=== PATIENT | female | born 2000 | race Caucasian/White ===

== ENCOUNTER 2022-06-18 15:33 | Emergency (ER) | payer OTHER, SELFPAY ==
[2022-06-18 15:34] VITALS: BP 132/83; PULSE 79; RESP 18; TEMP 36.6; O2SAT 100; BMI 19.3
--- NOTE | 2022-06-18 15:50 | RAD_ITS ---
EXAM: XR RIGHT FINGERS, 2 OR MORE VIEWS CLINICAL INDICATION: Trauma TECHNIQUE: Frontal, lateral and oblique views of the fingers of the right hand. This report was created using [employer] report [employer] technology. COMPARISON: None. FINDINGS: BONES/JOINTS: Unremarkable. No acute fracture. No subluxation. Normal alignment. Preservation of the joint space. No sclerotic or destructive changes observed. SOFT TISSUES: Soft tissue swelling around the fourth digit. Fracture through the tuft of the fourth digit. Open fracture is not excluded. No radiopaque foreign body. RAD/Finger(s) Min 2 Views IMPRESSION: Soft tissue swelling around the fourth digit. Fracture through the tuft of the fourth digit. Open fracture is not excluded. Electronically Signed: Tera Shukla MD at 16:08 EST Reading Location ID and State: [facility] / [place] , Service support ,
[2022-06-18] MEDS: Bupivacaine Mpf 0.5% 30 ML VIAL INFILT (15:54)
[2022-06-18] MEDS: Diphth,Pertuss(Acell),Tet Vac 0.5 ML Vial IM (15:55)
[2022-06-18] MEDS: Lidocaine 1% (20 ml mdv) 20 ML Vial INFILT (15:55)
--- NOTE | 2022-06-18 16:41 | EDS_ITS ---
HPI History of Present Illness Chief Complaint: Laceration Informant: patient Narrative Narrative: Patient got her distal right dominant hand ring finger smashed and cut. Last tetanus is uncertain. Minimal bleeding it is well controlled. No numbness. Range of motion is intact. No other injury. It is better if she covers it. It is worse if she gets it pressed or touched. She is not diabetic. No anticoagulation. PFSH PFSH Home Medications cephalexin 500 mg capsule 500 mg PO Q6 #28 caps 06/18/22 [Rx Last Taken Unknown] Allergy/AdvReac Type Severity Reaction Status Date / Time No Known Allergies Allergy Verified 06/18/22 15:35 Social History Smoking Status: Never smoker ROS ROS ED Constitutional Constitutional ED: Denies fever(s) Gastrointestinal Gastrointestinal: Denies nausea or vomiting Musculoskeletal Musculoskeletal: Reports other Details: Injury to dominant hand right distal index finger as in history of present illness. Integumentary Reports other Details: Laceration to distal finger. Neurologic Neurologic: Denies paresthesias Endocrine Endocrinology: Denies polydipsia or polyuria Hematologic/Lymphatic Hematologic/Lymphatic: Denies easy bleeding or easy bruising EXAM Physical Exam Const Vital Signs: 06/18/22 15:34 Temperature 97.9 F Temperature Source Temporal Pulse Rate 79 Respiratory Rate 18 Blood Pressure 132/83 H Blood Pressure Mean 99 Pulse Ox 100 Oxygen Delivery Method Room Air Positive well nourished and well developed General Appearance ED: well developed and NAD HEENT atraumatic Resp normal respiratory effort Extremity Extremity Narrative: Patient has contused and lacerated tissue overlying the right distal ring finger. There is no active bleeding but there is some dried blood around the tip. There is certainly a laceration but the details of this are hard to see with the dried blood. This will be examined more closely after anesthesia for her comfort. Both flexor and extensor tendons are intact. Both superficial and deep flexors are intact. Neuro no focal motor deficits and no sensory deficits noted Sensorium / Orientation: alert Psych mental status grossly normal Skin General Skin Exam: Negative for petechiae MDM MDM MDM Narrative Medical decision making narrative: Procedure: Suture of laceration and wound cleansing Discussed risk benefits. We did a digital block with a total of about 2 cc of a 50% mixture of 1% lidocaine and 0.5% bupivacaine. Patient got excellent anesthesia in the lateral aspect but medially the anesthesia just went part way down. We have added about another 1 cc to that area and then waited longer. The area was then completely anesthetic. We scrubbed the tip. There is a lacer ation transversely across the nail but the nail itself both proximal and distal was not loose so it was kept in place. This was copiously irrigated and scrubbed all around the area. There was actually a moderate amount of skin that it was peeled off. This was trimmed to avoid leaving totally devitalized tissue. This was all superficial epidermal tissue loss. There is one area on the tuft that did go into the deeper tissues. This was sutured with just 1 suture to bring this back. This was all copiously scrubbed and irrigated prior to this. I talked to the patient about signs of infection and reasons to return. She does have technically an open fracture. We will get antibiotics initiated. Radiography Diagnostic Testing: Clinical Impression(s) from Imaging Studies Finger X-Ray 06/18/22 15:50 IMPRESSION: Soft tissue swelling around the fourth digit. Fracture through the tuft of the fourth digit. Open fracture is not excluded. Electronically Signed: Tera Shukla MD at 16:08 EST , Three-view x-ray of her right ring finger looked at by me and read by radiology does show a fracture transversely across the distal tuft. Discharge Plan Triage Chief Complaint: Laceration Other Complaint: Upper Extremity Injury ED Provider: Selvin Reyse Dx/Rx/DC Orders Clinical Impression: Laceration of right index finger, Open fracture of tuft of distal phalanx of finger Instructions: ED Fracture, Finger, Open, ED Laceration: All Closures Prescriptions: New cephalexin [cephalexin] 500 mg capsule 500 mg PO Q6 Qty: 28 0RF Primary Care Provider: BETH ACOSTA Referrals: BETH ACOSTA [Other] - 10 Day for suture removal Disposition Disposition: Home, Self Care
[2022-06-18] MEDS: Cephalexin 250 MG Capsule 500 MG PO (17:30)
== END 2022-06-18 17:32 | disposition home or self-care (01) ==
PROVIDERS: Emergency Provider Emergency Medicine; Visit Provider Emergency Medicine
DX: S62.634B Displaced fracture of distal phalanx of right ring finger, initial encounter for open fracture (principal); W23.0XXA Caught, crushed, jammed, or pinched between moving objects, initial encounter; Z23 Encounter for immunization
CPT/HCPCS: 12001; 73140; 90715; 99283

== ENCOUNTER → 2023-03-22 | Outpatient (CLI) | payer OTHER, SELFPAY ==
[2023-03-22 17:51] LABS: Absolute Lymphocyte Count 2.61 X10^3/uL (0.83-4.51); Absolute Neutrophil Count 4.8 X10^3/uL (2.0-7.7); Basophil# 0.04 X10^3/uL; Basophil% 0.5 % (0-1); Eosinophil# 0.17 X10^3/uL; Hematocrit 40.6 % (37-47); Hemoglobin 13.2 g/dL (12.0-15.0); Lymphocyte # 2.61 X10^3/ul (0.83-4.51); Lymphocyte % 31.3 % (19-41); Mean Corp Hgb Conc 32.5 g/dL (32-36); Mean Corpuscular Hgb 28.4 pg (27.0-32.0); Mean Corpuscular Volume 87.5 fL (81-99); Mean Platelet Vol. 10.5 fl (6.2-12.0); Monocyte# 0.67 X10^3/uL; NRBC Flagged by Analyzer 0 % (0-5); Neutrophil # 4.84 X10^3/uL (2.7-7.7); Platelet Count 258 K/mm3 (150-450); RBC Distribution Width CV 12.1 % (11.6-14.6); RBC Distribution Width SD 39.3 fl (35.1-43.9); Red Blood Count 4.64 M/mm3 (4.2-5.4); White Blood Count 8.4 K/mm3 (4.4-11.0)
[2023-03-22 18:24] LABS: Vitamin B12 433 pg/mL (211-911); Vitamin D,25 Hydroxy 44.3 ng/mL
[2023-03-22 18:30] LABS: ALB/GLOB Ratio 1.1 RATIO (0.9-2.4); AST(SGOT) 15 U/L (15-37); Alanine Aminotransfer ALT/SGPT 23 U/L (13-56); Albumin, Serum 3.9 g/dL (3.2-5.0); Alkaline Phosphatase 75 U/L (45-117); Anion Gap 3 (5-15); BUN 15 mg/dL (7-18); BUN/Creat Ratio 21.2 RATIO (10-20); Calcium,Total 8.8 mg/dL (8.5-10.1); Chloride 106 mmol/L (98-107); Creatinine, Serum 0.71 mg/dL (0.55-1.02); EST Glomerular Filtration Rate 107 mL/min (>60); Est Glom Filt Rate - Afr Amer 130 mL/min (>60); Ferritin 53 ng/mL (8-252); Globulin 3.4 g/dL (2.2-4.2); Glucose 60 mg/dL (74-106); Magnesium 2.3 mg/dL (1.6-2.6); Potassium 3.4 mmol/L (3.5-5.1); Protein, Total 7.3 g/dL (6.4-8.2); Sodium Level 139 mmol/L (136-145); Thyroid Stim Hormone (TSH) 1.41 uIU/mL (0.358-3.74)
== END | disposition home or self-care (01) ==
LOC: MTLAB 14:34
PROVIDERS: PCP Family Medicine; Visit Provider Family Medicine
DX: R53.83 Other fatigue (principal)
CPT/HCPCS: 36415; 80053; 82306; 82607; 82728; 83735; 84443; 85025

== ENCOUNTER → 2025-01-06 | Outpatient (CLI) | payer OTHER, SELFPAY ==
--- OUTSIDE RECORDS SUMMARY | 2025-01-06 23:04 | XMS RPT_ITS | CCD ---
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 Mona Londono Attending Provider [phone] Sunshine Loja Primary Care Unavailable Mela Hobbs NP Attending Unavailable Sunshine Loja Attending Unavailable Sunshine Loja Primary Care Unavailable Dr. Mona Londono DO Attending Provider Medications Current Medications Medication Drug Class(es) Dates Sig (Normalized) Sig (Original) [place] (Nk) (2 sources) Start: 12-21-2022 [place] (Nk) A ctive December 21, 2022 12:00am Completed/Discontinued Medications Medication Drug Class(es) Dates Sig (Normalized) Sig (Original) cephalexin 500 mg oral capsule (3 sources) Cephalosporin Antibacterial Start: 06-18-2022 End: 12-21-2022 take 1 capsule by mouth every six hours Cephalexin 500 mg capsule Discontinued 500 mg PO EVERY 6 HOURS 28 0 June 18, 2022 1:00am December 21, 2022 9:12am Problems Active Problems Problem Classification Problem Date Documented Da te Episodic/Chronic Contraceptive and procreative management (1 source) Patient encounter status; Translations: [Encounter for other general counseling and advice on procreation] 01-06-2025 Episodic Fracture of upper limb (3 sources) Open fracture finger distal phalanx, tuft; Translations: [Displaced fracture of distal phalanx of unspecified finger, initial encounter for open fracture] 06-26-2022 Episodic Mood disorders (1 source) Mood swings; Translations: [Emotional lability] 12-27-2023 Episodic Comment on above: cyclic. Declines Rx. Reviewed diet, exercise, multivitamin Open wounds of extremities (3 sources) Laceration of right index finger; Translations: [Laceration without foreign body of right index finger without damage to nail, initial encounter] 06-26-2022 Episodic Past or Other Problems Problem Classification Problem Date Documented Da te Episodic/Chronic Malaise and fatigue (1 source) Other fatigue; Translations: [Other fatigue] Onset: 03-28-2023 Episodic Results Test Name Value Interpretation Reference Range Facility E Business Specialist Office Visit Reporton 12-27-2023 E Business Specialist Office Visit Report [facility] [address] [place] [address] OFFICE VISIT Date of Service: 12/27/23 MR#: [id number] Acct: [id number] Name: RANDALL MOROCHO Rep #: [id number] : 2000 Provider: MEHUL white Age/Sex: 23/F [place] 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 Accompanied by: Self Is patient in pain?: No Feel stressed/tense/nervo us/anxious/difficult y sleeping: only a little Allergies No Known Allergies Allergy (Verified 12/27/23 11:24) Medications ???Medication ???Instructions ???Recorded ???Confirmed ???Type NK 12/21/22 12/27/23 History PFSH Medical History Anemia Surgical History S/P wisdom tooth extraction Family History Grandmother Breast cancer Social History Smoking Status: Never smoker alcohol intake: never substance use type: does not use caffeine: No what type of physical activity do you participate in: walking frequency: 3-4 times per week seatbelt use: always do you feel safe at home: Yes additional social history: Single HPI Encounter for routine gynecological examination Details: RANDALL MOROCHO is a 23 year old who presents for annual exam. No intercourse. Has had oral contact. Same partner. No contraception X 2 years/was on pills but is electing to use abstinence now. Noting more emotional especially prior to menses. Does not want to take contraception or medications if possible. Last PAP: 2021 History of abnormal PAP: no Last mammogram: NA Other preventative health care screenings: [facility] Female Reproductive History Last Menstrual Period: 12/06/23 Cycle Length: 21-35 Questions: metorrhagia: No and sexually active: No ROS Const Constitutional: Denies fatigue, weight gain or weight loss Cardio Card: Denies chest pain Resp Resp: Denies cough or dyspnea on exertion GI GI: Denies abdominal pain, bloating, change in stool character, constipation or vomiting : Reports as per HPI; Denies difficulty voiding, pelvic pain, urinary frequency, urinary incontinence, urinary urgency, vaginal discharge or vaginal pruritus Psych Psych: Reports as per HPI Exam Const General: cooperative, healthy appearing, no acute distress and well developed Orientation: alert, oriented to person and oriented to place HENMS Head: normal to inspection Neck Neck: normal visual inspection Thyroid: thyroid normal Lymphatic: no lymphadenopathy noted Chest Breast inspection: normal inspection of the breasts and normal inspection of the axillae Breast palpation: normal palpation of the breasts, normal palpation of the axillae and no axillary lymphadenopathy Resp Effort Inspection: normal respiratory effort GI Palpation: soft, no masses and nontender Rectal Exam: deferred External Female Exam: normal external appearance and normal appearance of the urethra Urethra: normal appearance of the urethra and normal palpation Speculum Exam - Vagina: normal appearance of the vagina and normal vaginal discharge Speculum Exam - Cervix: normal appearance of the cervix Bimanual Exam- Vagina Uterus: normal bimanual exam, uterine size normal, uterine shape normal and non-tender Bimanual Exam- Adnexa, other: normal adnexae, no masses, normal and non-tender Pelvic Support: normal Neuro General: patient alert and patient oriented x3 Psych Affect: normal affect Coding Level of Care Code Off vis,est,prev 18-39yrs Diagnoses Encounter for gynecological examination with abnormal finding Z01.411 Gynecological examination findings: abnormal findings PRESENT Emotional lability R45.86 Assessment and Plan Assessment and Plan (1) Encounter for routine gynecological examination: Qualifiers: Gynecological examination findings: abnormal findings PRESENT Qualified Code(s): Z01.411 - Encounter for gynecological examination (general) (routine) with abnormal findings (2) Emotional lability: Status: Acute Comment: cyclic. Declines Rx. Reviewed diet, exercise, multivitamin Plan Completed breast and pelvic exam Reviewed diet and exercise Pap 2021 Discussed benefit of contraception, SSRI, low sugar/carb diet, exercise. She prefers to avoid medications breast self exam encouraged monthly Contraception abstinence RTO 1 year, prn with problems [facility]ara [facility]rakash[facility] 12/27/23 1152 (more content not included)... Normal [facility] Outside Recordson 12-13-2023 Outside Records [id number] #[id number] [facility] Absolute lymphocyte countOrd ered By: Sunshine Grubbsnger on 03-22-2023 Lymphocytes Auto (Unsp spec) [#/Vol] 2.61 10*3/uL 0.83-4.51 [facility] Basophil percentageOrdered B y: Sunshine Loja on 03-22-2023 Basophils/100 WBC (Bld) 0.5 % 0-1 [facility] Bilirubin [Mass/Vol] 0.50 mg/dL 0.20-1.00 [facility] Comment on above: For patients on eltr ombopag therapy, use of [place] TBIL is not recommended. Chloride [Moles/Vol] 106 mmol/L 98-107 [facility] Eosinophils/100 WBC (Bld) 2.0 % 0-5 [facility] Glucose [Mass/Vol] 60 mg/dL 74-106 [facility] Neutrophils (Bld) [#/Vol] 4.8 10*3/uL 2.0-7.7 [facility] Neutrophils/100 WBC (Bld) 58.0 % 47-70 [facility] Potassium [Moles/Vol] 3.4 mmol/L 3.5-5.1 [facility] Protein [Mass/Vol] 7.3 g/dL 6.4-8.2 [facility] Sodium [Moles/Vol] 139 mmol/L 136-145 [facility] WBC (Bld) [#/Vol] 8.4 10*3/uL 4.4-11.0 [facility] Blood erythrocytes count (nu mber/volume)Ordered By: Sunshine Loja on 03-22-2023 RBC (Bld) [#/Vol] 4.64 10*6/uL 4.2-5.4 [facility] Blood hemoglobin measurement (mass/volume)Ordered By: Sunshine Loja on 03-22-2023 Hemoglobin (Bld) [Mass/Vol] 13.2 g/dL 12.0-15.0 [facility] Blood lymphocytes/100 leukoc ytesOrdered By: Sunshine Loja on 03-22-2023 Lymphocytes/100 WBC (Bld) 31.3 % 19-41 [facility] Blood monocytes/100 leukocyt esOrdered By: Sunshine Loja on 03-22-2023 Monocytes/100 WBC (Bld) 8.0 % 0-10 [facility] Blood platelet mean volumeOr dered By: Sunshine Loja on 03-22-2023 Platelet mean volume (Bld) [Entitic vol] 10.5 fL 6.2-12.0 [facility] CBC W/Diff, Automatedon 03-09 Absolute Lymph 2.61 X10 3/uL Normal 0.83-4.51 [facility] Comment on above: Order Comment: Order Date: 03/22/23 Order Info: 0184-1 - CBCD Performed By: #### L 501.9520, L503.6550, L500.4050, L100.0100, L501.5200, L506.1000, L503.0105 #### [facility] [address] [facility]. [place], [place], [id number] Absolute Neut 4.8 X10 3/uL Normal 2.0-7.7 [facility] Comment on above: Order Comment: Order Date: 03/22/23 Order Info: 0184-1 - CBCD Performed By: #### L 501.9520, L503.6550, L500.4050, L100.0100, L501.5200, L506.1000, L503.0105 #### [facility] [address] [place], [address] Basophils/100 WBC (Bld) 0.5 % Normal 0-1 [facility] Comment on above: Order Comment: Order Date: 03/22/23 Order Info: 0184-1 - CBCD Performed By: #### L 501.9520, L503.6550, L500.4050, L100.0100, L501.5200, L506.1000, L503.0105 #### [facility] [address] [place], [address] Eosinophils/100 WBC (Bld) 2.0 % Normal 0-5 [facility] Comment on above: Order Comment: Order Date: 03/22/23 Order Info: 0184- - CBCD Performed By: #### L 501.9520, L503.6550, L500.4050, L100.0100, L501.5200, L506.1000, L503.0105 #### [facility] [address] [place], [address] Erythrocyte distribution width (RBC) [Ratio] 12.1 % Normal 11.6-14.6 [facility] Comment on above: Order Comment: Order Date: 03/22/23 Order Info: 0184- - CBCD Performed By: #### L 501.9520, L503.6550, L500.4050, L100.0100, L501.5200, L506.1000, L503.0105 #### [facility] [address] [place], [address] Hematocrit (Bld) [Volume fraction] 40.6 % Normal 37-47 [facility] Comment on above: Order Comment: Order Date: 03/22/23 Order Info: 0184-1 - CBCD Performed By: #### L 501.9520, L503.6550, L500.4050, L100.0100, L501.5200, L506.1000, L503.0105 #### [facility] [address] [place], [address] Hemoglobin (Bld) [Mass/Vol] 13.2 g/dL Normal 12.0-15.0 [facility] Comment on above: Order Comment: Order Date: 03/22/23 Order Info: 0184-1 - CBCD Performed By: #### L 501.9520, L503.6550, L500.4050, L100.0100, L501.5200, L506.1000, L503.0105 #### [facility] [address] [place], [address] IG% 0.200 Normal 0.0-0.9 [facility] Comment on above: Order Comment: Order Date: 03/22/23 Order Info: [id number] - CBCD Result Comment: IG% - Immature Granulocytes (promyelocytes, myelocytes and metamyelocytes) > 1% indicates that a LEFT SHIFT is Present. Performed By: #### L 501.9520, L503.6550, L500.4050, L100.0100, L501.5200, L506.1000, L503.0105 #### [facility] [address] [place], [address] Lymphocytes/100 WBC (Bld) 31.3 % Normal 19-41 [facility] Comment on above: Order Comment: Order Date: 03/22/23 Order Info: 0184- - CBCD Performed By: #### L 501.9520, L503.6550, L500.4050, L100.0100, L501.5200, L506.1000, L503.0105 #### [facility] [address] [place], [address] MCH (RBC) [Entitic mass] 28.4 pg Normal 27.0-32.0 [facility] Comment on above: Order Comment: Order Date: 03/22/23 Order Info: 0184-1 - CBCD Performed By: #### L 501.9520, L503.6550, L500.4050, L100.0100, L501.5200, L506.1000, L503.0105 #### [facility] [address] [place], [address] MCHC (RBC) [Mass/Vol] 32.5 g/dL Normal 32-36 [facility] Comment on above: Order Comment: Order Date: 03/22/23 Order Info: 0184-1 - CBCD Performed By: #### L 501.9520, L503.6550, L500.4050, L100.0100, L501.5200, L506.1000, L503.0105 #### [facility] [address] [place], [address] MCV (RBC) [Entitic vol] 87.5 fL Normal 81-99 [facility] Comment on above: Order Comment: Order Date: 03/22/23 Order Info: 0184-1 - CBCD Performed By: #### L 501.9520, L503.6550, L500.4050, L100.0100, L501.5200, L506.1000, L503.0105 #### [facility] [address] [place], [address] Monocytes/100 WBC (Bld) 8.0 % Normal 0-10 [facility] Comment on above: Order Comment: Order Date: 03/22/23 Order Info: 0184-1 - CBCD Performed By: #### L 501.9520, L503.6550, L500.4050, L100.0100, L501.5200, L506.1000, L503.0105 #### [facility] [address] [place], [address] Neutrophils/100 WBC (Bld) 58.0 % Normal 47-70 [facility] Comment on above: Order Comment: Order Date: 03/22/23 Order Info: 0184-1 - CBCD Performed By: #### L 501.9520, L503.6550, L500.4050, L100.0100, L501.5200, L506.1000, L503.0105 #### [facility] [address] [place], [address] Nucleated RBC (Bld) [#/Vol] 0 10*3/uL Normal 0-5 [facility] Comment on above: Order Comment: Order Date: 03/22/23 Order Info: 0184-1 - CBCD Performed By: #### L 501.9520, L503.6550, L500.4050, L100.0100, L501.5200, L506.1000, L503.0105 #### [facility] [address] [place], [address] Platelet mean volume (Bld) [Entitic vol] 10.5 fL Normal 6.2-12.0 [facility] Comment on above: Order Comment: Order Date: 03/22/23 Order Info: 0184-1 - CBCD Performed By: #### L 501.9520, L503.6550, L500.4050, L100.0100, L501.5200, L506.1000, L503.0105 #### [facility] [address] [place], [address] Platelets (Bld) [#/Vol] 258 10*3/uL Normal 150-450 [facility] Comment on above: Order Comment: Order Date: 03/22/23 Order Info: 0184-1 - CBCD Performed By: #### L 501.9520, L503.6550, L500.4050, L100.0100, L501.5200, L506.1000, L503.0105 #### [facility] [address] [place], [address] RBC (Bld) [#/Vol] 4.64 10*6/uL Normal 4.2-5.4 [facility] Comment on above: Order Comment: Order Date: 03/22/23 Order Info: 0184-1 - CBCD Performed By: #### L 501.9520, L503.6550, L500.4050, L100.0100, L501.5200, L506.1000, L503.0105 #### [facility] [address] [place], [address] RDW SD 39.3 fl Normal 35.1-43.9 [facility] Comment on above: Order Comment: Order Date: 03/22/23 Order Info: 0184-1 - CBCD Performed By: #### L 501.9520, L503.6550, L500.4050, L100.0100, L501.5200, L506.1000, L503.0105 #### [facility] [address] [place], [address] WBC (Bld) [#/Vol] 8.4 10*3/uL Normal 4.4-11.0 [facility] Comment on above: Order Comment: Order Date: 03/22/23 Order Info: 0184-1 - CBCD Performed By: #### L 501.9520, L503.6550, L500.4050, L100.0100, L501.5200, L506.1000, L503.0105 #### [facility] [address], [address] Comprehensive Metabolic Prof [facility] 03-22-2023 Albumin [Mass/Vol] 3.9 g/dL Normal 3.2-5.0 [facility] Comment on above: Order Comment: Order Date: 03/22/23 Order Info: 0786-1 - CMP Order Info: [id number] - MG Order Info: 3016-3 - TSH Order Info: 2276-4 - JULES Performed By: #### L 501.9520, L503.6550, L500.4050, L100.0100, L501.5200, L506.1000, L503.0105 #### [facility] [address] [place], [address] Albumin/Globulin [Mass ratio] 1.1 {ratio} Normal 0.9-2.4 [facility] Comment on above: Order Comment: Order Date: 03/22/23 Order Info: 0786-1 - CMP Order Info: [id number] - MG Order Info: 6-3 - TSH Order Info: 2275-4 - JULES Performed By: #### L 501.9520, L503.6550, L500.4050, L100.0100, L501.5200, L506.1000, L503.0105 #### [facility] [address] [place], [address] ALK P 75 U/L Normal 45-117 [facility] Comment on above: Order Comment: Order Date: 03/22/23 Order Info: 86-1 - CMP Order Info: [id number] - MG Order Info: 3015-3 - TSH Order Info: 4 - JULES Performed By: #### L 501.9520, L503.6550, L500.4050, L100.0100, L501.5200, L506.1000, L503.0105 #### [facility] [address] [place], [address] ALT [Catalytic activity/Vol] 23 U/L Normal 13-56 [facility] Comment on above: Order Comment: Order Date: 03/22/23 Order Info: 0786-1 - CMP Order Info: 65332-5 - MG Order Info: 3015-3 - TSH Order Info: 2275-4 - JULES Performed By: #### L 501.9520, L503.6550, L500.4050, L100.0100, L501.5200, L506.1000, L503.0105 #### [facility] [address] [place], [address] AST [Catalytic activity/Vol] 15 U/L Normal 15-37 [facility] Comment on above: Order Comment: Order Date: 03/22/23 Order Info: 0786-1 - CMP Order Info: [id number] - MG Order Info: 3016-3 - TSH Order Info: 2275-4 - JULES Performed By: #### L 501.9520, L503.6550, L500.4050, L100.0100, L501.5200, L506.1000, L503.0105 #### [facility] [address] [place], [address] Bilirubin [Mass/Vol] 0.50 mg/dL Normal 0.20-1.00 [facility] Comment on above: Order Comment: Order Date: 03/22/23 Order Info: 0786-1 - CMP Order Info: [id number] - MG Order Info: 3015-3 - TSH Order Info: 4 - JULES Result Comment: For patients on eltrombopag therapy, use of [place] TBIL is not recommended. Performed By: #### L 501.9520, L503.6550, L500.4050, L100.0100, L501.5200, L506.1000, L503.0105 #### [facility] [address] [place], [address] BUN/CRE 21.2 RATIO High 10-20 [facility] Comment on above: Order Comment: Order Date: 03/22/23 Order Info: 0786-1 - CMP Order Info: 72024-2 - MG Order Info: 3015-3 - TSH Order Info: 2275-4 - JULES Performed By: #### L 501.9520, L503.6550, L500.4050, L100.0100, L501.5200, L506.1000, L503.0105 #### [facility] [address] [place], [address] CA,Total 8.8 mg/dL Normal 8.5-10.1 [facility] Comment on above: Order Comment: Order Date: 03/22/23 Order Info: 0786-1 - CMP Order Info: 60940-8 - MG Order Info: 3015-3 - TSH Order Info: 4 - JULES Performed By: #### L 501.9520, L503.6550, L500.4050, L100.0100, L501.5200, L506.1000, L503.0105 #### [facility] [address] [place], [address] Chloride [Moles/Vol] 106 mmol/L Normal 98-107 [facility] Comment on above: Order Comment: Order Date: 03/22/23 Order Info: 0786-1 - CMP Order Info: [id number] - MG Order Info: 3016-3 - TSH Order Info: 4 - JULES Performed By: #### L 501.9520, L503.6550, L500.4050, L100.0100, L501.5200, L506.1000, L503.0105 #### [facility] [address] [place], [address] CO2 [Moles/Vol] 30.0 mmol/L Normal 21.0-32.0 [facility] Comment on above: Order Comment: Order Date: 03/22/23 Order Info: 785-1 - CMP Order Info: [id number] - MG Order Info: 3 - TSH Order Info: 4 - JULES Performed By: #### L 501.9520, L503.6550, L500.4050, L100.0100, L501.5200, L506.1000, L503.0105 #### [facility] [address] [place], [address] Creatinine [Mass/Vol] 0.71 mg/dL Normal 0.55-1.02 [facility] Comment on above: Order Comment: Order Date: 03/22/23 Order Info: 0786-1 - CMP Order Info: 84896-8 - MG Order Info: 3015-3 - TSH Order Info: 4 - JULES Result Comment: The validity of the calculated GFR GFRAA in patients over 70 years has not been determined. Clinical correlation is essential. Performed By: #### L 501.9520, L503.6550, L500.4050, L100.0100, L501.5200, L506.1000, L503.0105 #### [facility] [address] [place], [place], [address] EST GFR - AA 130 mL/min Normal >60 [facility] Comment on above: Order Comment: Order Date: 03/22/23 Order Info: 0786-1 - CMP Order Info: [id number] - MG Order Info: 3015-3 - TSH Order Info: 2275-4 - JULES Result Comment: Afri can Pan[place]ian GFR Calc Performed By: #### L 501.9520, L503.6550, L500.4050, L100.0100, L501.5200, L506.1000, L503.0105 #### [facility] [address] [place], [place], [address] GAP 3 Low 5-15 [facility] Comment on above: Order Comment: Order Date: 03/22/23 Order Info: 0786-1 - CMP Order Info: [id number] - MG Order Info: 3015-09 - TSH Order Info: 4 - JULES Performed By: #### L 501.9520, L503.6550, L500.4050, L100.0100, L501.5200, L506.1000, L503.0105 #### [facility] [address] [place], [place], [address] GFR/1.73 sq M.predicted among non-blacks MDRD (S/P/Bld) [Vol rate/Area] 107 mL/min/{1.73_m2} Normal >60 [facility] Comment on above: Order Comment: Order Date: 03/22/23 Order Info: 0786-1 - CMP Order Info: [id number] - MG Order Info: 3 - TSH Order Info: 2275-4 - JULES Result Comment: Non- GFR Calc Performed By: #### L 501.9520, L503.6550, L500.4050, L100.0100, L501.5200, L506.1000, L503.0105 #### [facility] [address] [place], [address] Globulin (S) [Mass/Vol] 3.4 g/dL Normal 2.2-4.2 [facility] Comment on above: Order Comment: Order Date: 03/22/23 Order Info: 0786-1 - CMP Order Info: [id number] - MG Order Info: 3016-3 - TSH Order Info: 2275-4 - JULES Performed By: #### L 501.9520, L503.6550, L500.4050, L100.0100, L501.5200, L506.1000, L503.0105 #### [facility] [address] [place], [address] Glucose [Mass/Vol] 60 mg/dL Low 74-106 [facility] Comment on above: Order Comment: Order Date: 03/22/23 Order Info: 07-1 - CMP Order Info: [id number] - MG Order Info: 3 - TSH Order Info: 4 - JULES Performed By: #### L 501.9520, L503.6550, L500.4050, L100.0100, L501.5200, L506.1000, L503.0105 #### [facility] [address] [place], [address] Potassium [Moles/Vol] 3.4 mmol/L Low 3.5-5.1 [facility] Comment on above: Order Comment: Order Date: 03/22/23 Order Info: 07-1 - CMP Order Info: [id number] - MG Order Info: 3016-3 - TSH Order Info: 227-4 - JULES Performed By: #### L 501.9520, L503.6550, L500.4050, L100.0100, L501.5200, L506.1000, L503.0105 #### [facility] [address] [place], [address] Sodium [Moles/Vol] 139 mmol/L Normal 136-145 [facility] Comment on above: Order Comment: Order Date: 03/22/23 Order Info: 86-1 - CMP Order Info: [id number] - MG Order Info: 3 - TSH Order Info: 2275-10 - JULES Performed By: #### L 501.9520, L503.6550, L500.4050, L100.0100, L501.5200, L506.1000, L503.0105 #### [facility] [address] [place], [address] T PROT 7.3 g/dL Normal 6.4-8.2 [facility] Comment on above: Order Comment: Order Date: 03/22/23 Order Info: 785-1 - CMP Order Info: [id number] - MG Order Info: 3 - TSH Order Info: 2275-10 - JULES Performed By: #### L 501.9520, L503.6550, L500.4050, L100.0100, L501.5200, L506.1000, L503.0105 #### [facility] [address] [place], [place], [address] Urea nitrogen [Mass/Vol] 15 mg/dL Normal 7-18 [facility] Comment on above: Order Comment: Order Date: 03/22/23 Order Info: 785-1 - CMP Order Info: [id number] - MG Order Info: 3 - TSH Order Info: 2275-10 - JULES Performed By: #### L 501.9520, L503.6550, L500.4050, L100.0100, L501.5200, L506.1000, L503.0105 #### [facility] Laboratory [address] [place], [place], [id number] Determination of erythrocyte mean corpuscular volume (MCV)Ordered By: Sunshine Loja on 03-22-2023 MCV (RBC) [Entitic vol] 87.5 fL 81-99 [facility] Ferritinon 03-22-2023 Ferritin [Mass/Vol] 53 ng/mL Normal 8-252 [facility] Comment on above: Order Comment: Order Date: 03/22/23 Order Info: [id number] - CMP Order Info: [id number] - MG Order Info: [id number] - TSH Order Info: [id number] - JULES Performed By: #### L [id number], L503.6550, L500.4050, L100.0100, L501.5200, L506.1000, L503.0105 #### [facility] [address] [place], [address] Hematocrit Auto (Bld) [Volum e fraction]Ordered By: Sunshine Loja on 03-22-2023 Hematocrit (Bld) [Volume fraction] 40.6 % 37-47 [facility] - Chemistry and C hemistry - challengeOrdered By: Sunshine Loja on 03-22-2023 ALP [Catalytic activity/Vol] 75 U/L 45-117 [facility] ALT [Catalytic activity/Vol] 23 U/L 13-56 [facility] CO2 [Moles/Vol] 30.0 mmol/L 21.0-32.0 [facility] Cobalamin (Vitamin B12) [Mass/Vol] 433 pg/mL 211-911 [facility] Globulin (S) [Mass/Vol] 3.4 g/dL 2.2-4.2 [facility] Magnesium [Mass/Vol] 2.3 mg/dL 1.6-2.6 [facility] Urea nitrogen/Creatinine [Mass ratio] 21.2 mg/mg 10-20 [facility] - Hematology and Cell countsOrdered By: Sunshine Loja on 03-22-2023 Erythrocyte distribution width (RBC) [Entitic vol] 39.3 fL 35.1-43.9 [facility] Erythrocyte distribution width (RBC) [Ratio] 12.1 % 11.6-14.6 [facility] Immature granulocytes/100 WBC (Bld) 0.200 % 0.0-0.9 [facility] Comment on above: IG% - Immature Granu locytes (promyelocytes, myelocytes and metamyelocytes) > 1% indicates that a LEFT SHIFT is Present. MCH (RBC) [Entitic mass] 28.4 pg 27.0-32.0 [facility] Nucleated RBC/100 WBC (Bld) [Ratio] 0 % 0-5 [facility] MCHC Auto (RBC) [Mass/Vol]Or dered By: Sunshine Loja on 03-22-2023 MCHC (RBC) [Mass/Vol] 32.5 g/dL 32-36 [facility] Magnesiumon 03-22-2023 Magnesium [Mass/Vol] 2.3 mg/dL Normal 1.6-2.6 [facility] Comment on above: Order Comment: Order Date: 03/22/23 Order Info: [id number] - CMP Order Info: [id number] - MG Order Info: [id number] - TSH Order Info: [id number] - JULES Performed By: #### L [id number], L503.6550, L500.4050, L100.0100, L501.5200, L506.1000, L503.0105 #### [facility] [place], [address] No Panel InformationOrdered By: Sunshine Loja on 03-22-2023 Estimated GFR (MDRD) Amer 130 mL/min >60 [facility] Comment on above: GFR Calc Estimated GFR (MDRD) Non-Af Amer 107 mL/min >60 [facility] Comment on above: Non- GFR Calc Thyroid Stimulating Hormone (TSH) 1.41 uIU/mL 0.358-3.74 [facility] Vitamin D 25-Hydroxy 44.3 ng/mL [facility] Comment on above: Vitamin D 25(OH) Sta tus Range Deficiency <20 ng/mL (50nmol/L) Insufficiency 20 - 30 ng/mL (50 - 75 nmol/L) Sufficiency 30 - 100 ng/mL (75 - 250 nmol/L) Toxicity >100 ng/mL (>250 nmol/L) Platelets bldOrdered By: Milind Loja on 03-22-2023 Platelets (Bld) [#/Vol] 258 10*3/uL 150-450 [facility] Serum or plasma albumin carmel urement (mass/volume)Ordered By: Sunshine Loja on 03-22-2023 Albumin [Mass/Vol] 3.9 g/dL 3.2-5.0 [facility] Serum or plasma albumin/glob ulin mass ratioOrdered By: Sunshine Loja on 03-22-2023 Albumin/Globulin [Mass ratio] 1.1 {ratio} 0.9-2.4 [facility] Serum or plasma calcium carmel urement (mass/volume)Ordered By: Sunshine Loja on 03-22-2023 Calcium [Mass/Vol] 8.8 mg/dL 8.5-10.1 [facility] Serum or plasma creatinine m easurement (mass/volume)Ordered By: Sunshine Loja on 03-22-2023 Creatinine [Mass/Vol] 0.71 mg/dL 0.55-1.02 [facility] Comment on above: The validity of the calculated GFR & GFRAA in patients over 70 years has not been determined. Clinical correlation is essential. Serum or plasma ferritin yareli surement (mass/volume)Ordered By: Sunshine Loja on 03-22-2023 Ferritin [Mass/Vol] 53 ng/mL 8-252 [facility] Serum or plasma urea nitroge n measurement (mass/volume)Ordered By: Sunshine Loja on 03-22-2023 Urea nitrogen [Mass/Vol] 15 mg/dL 7-18 [facility] Thin prep Papanicolaou smear with manual screeningOrdered By: Sunshine Loja on 03-22-2023 Thin prep Papanicolaou smear with manual screening 15 U/L 15-37 [facility] Thin prep Papanicolaou smear with manual screening 3 5-15 [facility] Thyroid Stim Hormone (TSH)on 03-22-2023 TSH 1.41 uIU/mL Normal 0.358-3.74 [facility] Comment on above: Order Comment: Order Date: 03/22/23 Order Info: [id number] - CMP Order Info: [id number] - MG Order Info: [id number] - TSH Order Info: [id number] - JULES Performed By: #### L [id number], [id number], L500.4050, L100.0100, L501.5200, L506.1000, L503.0105 #### [facility] [address] [place], [address] Vitamin B12on 03-22-2023 Cobalamin (Vitamin B12) [Mass/Vol] 433 pg/mL Normal 211-911 [facility] Comment on above: Order Comment: Order Date: 03/22/23 Order Info: [id number] - B12 Order Info: [id number] - VITD25 Performed By: #### L [id number], L503.6550, L500.4050, L100.0100, L501.5200, L506.1000, L503.0105 #### [facility] [address] [place], [address] Vitamin D,25 Hydroxyon 03-22 Vitamin D 25-OH 44.3 ng/mL Normal [facility] Comment on above: Order Comment: Order Date: 03/22/23 Order Info: 9 - B12 Order Info: [id number] - VITD25 Result Comment: Sofiya min D 25(OH) Status Range Deficiency <20 ng/mL (50nmol/L) Insufficiency 20 - 30 ng/mL (50 - 75 nmol/L) Sufficiency 30 - 100 ng/mL (75 - 250 nmol/L) Toxicity >100 ng/mL (>250 nmol/L) Performed By: #### L [id number], [id number], L500.4050, L100.0100, L501.5200, L506.1000, L503.0105 #### [facility] [address] [place], [address] Vital Signs Date Time Vital Sign Value Performing Clinician Faci marcely 01-06-2025 13:48-0400 Body height 167.[address] Mona Londono DO Work Phone: [facility] 01-06-2025 13:48-0400 Body mass index (BMI) [Ratio] 22.6 kg/m2 Dr. Mona Londono DO Work Phone: [facility] 01-06-2025 13:48-0400 Body weight 63.[address] Mona Londono DO Work Phone: [facility] 01-06-2025 13:48-0400 Diastolic blood pressure 73 mm[Hg] Dr. Mona Londono DO Work Phone: [facility] 01-06-2025 13:48-0400 Systolic blood pressure 117 mm[Hg] Dr. Mona Londono DO Work Phone: [facility] 12-21-2022 09:09-0400 Body height 167.[address] Mona Londono Work Phone: [facility] 12-21-2022 09:09-0400 Body mass index (BMI) [Ratio] 21 kg/m2 Dr. Mona Londono Work Phone: [facility] 12-21-2022 09:09-0400 Body weight 59.[address] Mona Londono Work Phone: [facility] 12-21-2022 09:09-0400 Diastolic blood pressure 73 mm[Hg] Dr. Mona Londono Work Phone: [facility] 12-21-2022 09:09-0400 Systolic blood pressure 110 mm[Hg] Dr. Mona Londono Work Phone: [facility] 06-18-2022 15:34-0500 Body height 167.64 cm [facility] Work Phone: 06-18-2022 15:34-0500 Body mass index (BMI) [Ratio] 19.3 kg/m2 [facility] Work Phone: 06-18-2022 15:34-0500 Body temperature 97.9 [degF] [facility] Work Phone: 06-18-2022 15:34-0500 Body weight 54.43 kg [facility] Work Phone: 06-18-2022 15:34-0500 Diastolic blood pressure 83 mm[Hg] [facility] Work Phone: 06-18-2022 15:34-0500 Heart rate 79 /min [facility] Work Phone: 06-18-2022 15:34-0500 Respiratory rate 18 /min [facility] Work Phone: 06-18-2022 15:34-0500 SaO2% (BldA) [Mass fraction] 100 % [facility] Work Phone: 06-18-2022 15:34-0500 Systolic blood pressure 132 mm[Hg] [facility] Work Phone: Encounters Encounter Date Encounter Type Care Provider Facility Start: 01-06-2025 End: 01-06-[address] Mona Londono DO Work Phone: -[facility] Start: 01-06-2025 End: 01-06-[address] Mona Londono DO -[facility] Work Phone: Start: 01-06-2025 End: 01-06-[address] Mona Londono DO [facility] Start: 12-27-2023 End: 12-27-2023 ambulatory Sunshine Loja Facility:[facility] Start: 03-22-2023 End: 03-22-[address] Mona Londono Work Phone: [facility] Work Phone: Start: 03-22-2023 End: 03-22-[address] Mona Londono Work Phone: [facility] Work Phone: Start: 03-22-2023 End: 03-22-2023 ambulatory Sunshine Loja Facility:[facility] Start: 12-21-2022 End: 12-21-[address] Mnoa Londono Work Phone: [facility] Work Phone: Start: 06-18-2022 End: 06-18-2022 Emergency department patient visit [facility]gency [facility] Procedures Date Procedure Procedure Detail Performing Clinician Start: 06-18-2022 Diagnostic radiograp hy of finger Plan of Treatment Date Care Activity Detail Author Complete blood count [facility] Glucose [Mass/volume ] in Serum or Plasma [facility] Lipid 1996 panel - S trish or Plasma [facility] Liquid based cervica l cytology screening [facility] Patient Education ED Fracture, F rebecca, Open ED Laceration: All Closures [facility] Work Phone: Patient referral [facility] Work Phone: Rubella IgG measurement [facility] Thyroid stimulating hormone measurement [facility] Vitamin D, 25-hydrox y measurement [facility] Immunizations Immunization Date Immunization Notes Care Provider Fa luisty 06-18-2022 tetanus toxoid, redu citlalli diphtheria toxoid, and acellular pertussis vaccine, adsorbed [facility] Payers Date Payer Category Payer Self-pay 2022 Unknown [id number] Unknown [id number] Unknown [id number] Unknown [id number] Social History Date Type Detail Facility Start: 06-18-2022 End: 12-21-2022 Tobacco smoking status NHIS Unknown if ever smoked [facility] Start: 2000 Sex Assigned At Female [facility] Start: 01-06-2025 Tobacco smoking status NHIS Never smoked tobacco (finding) [facility] NEGATED: Highlighted row [facility] Work Phone: Evaluation note Note Date & Type Note Facility Evaluation note No assessment information availa ble [facility] Work Phone: Evaluation note Note Date & Type Note Facility Evaluation note Diagnosis Onset Date Encounter for routine gyneco logical examination noneactive [facility] Work Phone: Evaluation note Note Date & Type Note Facility Evaluation note Diagnosis Onset Date Resolution Encounter for routine gynecological examination noneactive January 06, 2025 1:41pm [facility] Work Phone: Reason for referral (narrative) Note Date & Type Note Facility Reason for referral (narrative) No reason for referral information available [facility] Work Phone: Chief Complaint and Reason for Visit Chief Complaint UPPER EXTREMITY 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 Reason for Visit Encounter for routin e gynecological examination Chief Complaint Admit Date 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) January 06, 2025 1:41p m Reason for Visit Admit Date Encounter for routine gynecological exam ination January 06, 2025 1:41pm Advance Directives Advance Directive Response Recorded Date/ Time Living Will No June 18, 2 022 3:37pm Power of Instrument And Control Service Person No June 18, 2022 3:37pm Advance Directive Response Recorded Date/ Time Living Will No June 18, 2 022 4:37pm Power of Instrument And Control Service Person No June 18, 2022 4:37pm Summary Purpose Family History No Family History Records Found Additional Source Comments Goals (unrecognized section and content) Goals may be documented in a n alternate sectionGoals may be documented in an alternate sectionGoals may be documented in an alternate section Care Teams (unrecognized sec tion and content) Team Status: Active Member Role Status Dates Sunshine Loja DO Primary Care Provider Active Team Status: Inactive Member Role Status Dates Dr. Mona Londono DO Attending Provider Activ e Team Status: Inactive Member Role Status Dates Sunshine Loja DO Primary Care Provider, Attending Provider Active Team Status: Inactive Member Role/Relationship Status Dates Dr. Mona Londono DO Attending Provider Activ e Start: January 06, 2025 End: January 06, 2025 INFORMATION SOURCE (unrecogn ized section and content) DATE CREATED AUTHOR 12/20/2023 [facility] DATE CREATED AUTHOR 'S IWONA ATAYAAN 12/27/2023 [facility] FOR RECORDS PERTAINING TO PATIENTS WHO ARE OR HAVE BEEN ENROLLED IN A CHEMICAL DEPENDENCY/SUBSTANCEABUSE PROGRAM, SOME INFORMATION MAY BE OMITTED. This clinical summary was aggregated from multiple sources. Caution should be exercised in using it in the provision of clinical care. This summary normalizes information from multiple sources, and as a consequence, information in this document may materially change the coding, format and clinical context of patient data. In addition, data may be omitted in some cases. CLINICAL DECISIONS SHOULD BE BASED ON THE PRIMARY CLINICAL RECORDS. [facility] [employer] [facility]. provides no warranty or guarantee of the accuracy or completeness of information in this document.
== END | disposition home or self-care (01) ==
LOC: LABSPEC 15:41
PROVIDERS: Visit Provider Obstetrics & Gynecology
DX: Z12.4 Encounter for screening for malignant neoplasm of cervix (principal)
CPT/HCPCS: 88175; G0145